=== PATIENT | female | born 1940 ===

== ENCOUNTER 2018-10-28 03:35 | Outpatient (CLI) | payer MEDICARE, OTHER | END 2018-10-28 23:59 | disposition home or self-care (01) | LOC: DIABETIC 03:35 | PROVIDERS: ATTEND Specialist | DX: E11.65 Type 2 diabetes mellitus with hyperglycemia (principal); Z79.899 Other long term (current) drug therapy; Z88.8 Allergy status to other drugs, medicaments and biological substances | CPT/HCPCS: G0108 ==